=== PATIENT | female | born 1970 | race Caucasian/White ===

== ENCOUNTER 2022-06-02 01:14 | Emergency (ER) | payer OTHER ==
[2022-06-02 05:00] LABS: BASOPHIL 0.5 % (0-2); EOSINOPHIL 1.6 % (0-5); HGB 12.8 g/dl (12.5-16.0); LYMPHOCYTE 35.8 % (15-48); MCH 31.2 pg (25.0-31.0); MCHC 32.8 g/dL (32.0-36.0); MCV 95.1 fL (78.0-100.0); MONOCYTE 10.1 % (0-12); MPV 10.8 fL (6.0-9.5); NEUTROPHIL 51.8 % (41-80); NRBC 0; PLT 220 K/uL (150-400); RDW 13.2 % (11.5-14.0); WBC 5.5 K/uL (4.0-10.5)
[2022-06-02 05:17] LABS: ALBUMIN 3.4 g/dL (3.4-5.0); BILIRUBIN - TOTAL 0.2 mg/dL (0.2-1.0); BUN/CREAT RATIO (CALC) 20.6 RATIO; CREATININE 0.68 mg/dL (0.51-0.95); GLOBULIN (CALCULATION) 2.8 g/dL; POTASSIUM 3.2 mmol/L (3.5-5.1); TOTAL PROTEIN 6.2 g/dL (6.4-8.2)
[2022-06-02] MEDS ORDERED: PERCOCET 5-3251 EACH PO (09:04)
[2022-06-02] MEDS ORDERED: LIDODERM 5%1 EACH TOP (09:04)
[2022-06-02] MEDS ORDERED: ROBAXIN500 MG PO (09:10)
== END 2022-06-02 09:10 | disposition home or self-care (01) ==
LOC: FER 01:14
PROVIDERS: Emergency Medicine
DX: S30.1XXA Contusion of abdominal wall, initial encounter (principal); E16.2 Hypoglycemia, unspecified; W06.XXXA Fall from bed, initial encounter
CPT/HCPCS: 36415; 71260; 80053; 83690; 85025; J1885; Q9967